=== PATIENT | female | born 1980 | race African-American/Black ===

== ENCOUNTER 2024-11-06 19:07 | Emergency (ER) | payer SELFPAY ==
[2024-11-06 19:40] VITALS: BP 182/94; PULSE 90; RESP 16; TEMP 37; O2SAT 98
--- OUTSIDE RECORDS SUMMARY | 2024-11-06 22:04 | XMS_ITS | Clinical Summary ---
Author Organization [facility] Address [address] [place] [address] Care Team Providers Care Director Of Public Health Name Role Phone Sandra Benitez Unavailable [phone] Rahul Brush MD Unavailable [phone] Jyoti Reyna MD Primary Care Provider + Allergies Active Allergy Reactions Criticality Noted Date Comments Amoxicillin Rash Medium Amoxicillin Hives Medium 03/12/2022 Lisinopril Angioedema High 09/17/2017 Penicillins Hives,Rash,Urticaria High 03/31/2014 hives hives Hives Medications atorvastatin (LIPITOR) 10 mg tablet Take 1 tablet (10 mg total) by mouth every evening 3 Active OneTouch Verio test strips strip USE TO TEST TWICE DAILY AND NEEDED 3 Active gabapentin (NEURONTIN) 300 mg capsule Take 1 capsule (300 mg total) by mouth 3 (three) times a day 3 Active LORazepam (ATIVAN) 1 mg tablet TAKE 1 TABLET EVERY DAY BY ORAL ROUTE NEEDED. 3 Active levETIRAcetam (KEPPRA) 1,000 mg tablet Take 1 tablet (1,000 mg total) by mouth 2 (two) times a day 180 tablet 3 3 Active losartan-hydroCHLOR Othiazide (HYZAAR) 50-12.5 mg per tablet Take 1 tablet by mouth daily Active Januvia 100 mg tablet Take 1 tablet (100 mg total) by mouth daily Active zolpidem (AMBIEN) 10 mg tablet Take 1 tablet (10 mg total) by mouth nightly as needed for sleep 4 Active ondansetron ODT (ZOFRAN-ODT) 4 mg disintegrating tablet Take 1 tablet (4 mg total) by mouth every 8 (eight) hours as needed for nausea 20 tablet 4 Active azithromycin (ZITHROMAX) 250 mg tablet TAKE 2 TABLETS BY MOUTH TODAY, THEN TAKE 1 TABLET DAILY FOR 4 DAYS DIRECTED 4 Active benzonatate (TESSALON) 200 mg capsule TAKE ONE CAPSULE EVERY EIGHT HOURS NEEDED FOR COUGH 5 Active ibuprofen (ADVIL,MOTRIN) 800 mg tablet TAKE 1 TABLET EVERY 8 HOURS BY ORAL ROUTE NEEDED FOR 90 DAYS. 4 Active OneTouch Delica Plus Lancet 33 gauge misc USE TO CHECK BLOOD SUGAR DAILY 4 Active methylPREDNISolone (MEDROL DOSEPACK) 4 mg Dosepack TAKE 6 TABLETS ON DAY 1 DIRECTED ON PACKAGE AND DECREASE BY 1 TAB EACH DAY FOR A TOTAL OF 6 DAYS 5 Active oseltamivir (TAMIFLU) 75 mg capsule TAKE 1 CAPSULE TWICE DAILY FOR 5 DAYS 5 Active Active Problems Problem Noted Date Diagnosed Date Acute appendicitis 08/14/2022 Assessment & Plan (08/14/2022 10:49 PM CDT): - CT w/ Acute appendicitis without evidence of perforation - S/p OR 08/14 for appendectomy Acute appendicitis, unspecified acute appendicit is type 08/14/2022 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 On 08/14 patient was scoped by ENT showing L > R posterior granulomas (likely related to prolonged intubation), vocal folds moving symmetrically on adduction/abduction. The patient received 2 doses of Decadron on 08/13. - Dobhoff removed 08/21. MBS from 08/21 showed no dietary restriction - Is eating more today Aspiration pneumonia 08/16/2017 Assessment & Plan (08/16/2017 3:15 PM CDT): S/p one-week course of vancomycin 1500mg q12, cefepime 2g q8 hrs. Most recent chest xray showed mild to moderate asymmetric pulmonary edema on the right, with sparing of the left lung with no pleural effusion or pneumothorax. - breathing comfortably in RA Altered mental status 08/15/2017 Assessment & Plan (08/22/2017 10:55 AM CDT): Unclear what precipitated the initial presentation; differentials included intoxication versus seizure event. Patient was AO x 1 on admit to the MICU, likely related to post-ICU delirium with component of hypernatremia. Currently appeared much more alert. HIV, RPR, TSH wnl - continue to monitor - Cont Topamax (50mg BID) per Neuro - will need to follow up with Epilepsy outpatient - no indication for brain MRI or EEG at this point as exam was non-focal - S/p IV thiamine for three days; cont PO thiamine -Clinically improved today Assessment & Plan (08/15/2017 8:04 PM CDT): Patient is currently oriented to name only, however she appears to comprehend questions and is able to communicate yes/no answers. Likely multifactorial with components of ICU delirium, psychoactive medications, and hypernatremia. hCT on admission with NAICP -consider d/c baclofen, seroquel -delirium precautions Hypernatremia 08/14/2017 Assessment & Plan (08/16/2017 1:34 PM CDT): Patient has been persistently hypernatremic to high 140s low 150s since admission. She has been receiving D5W and post SBFT placement she also began free water flushes through her tube. After admission to the MICU her net water deficit was 3.4L. D5W was discontinued as the patient was severely hyperglycemic with increases in her free water flushes to compensate. Her Na has been downtrending on day of transfer. - daily BMP Assessment & Plan (08/15/2017 4:07 PM CDT): Na persistently in 150s for past several days. Free water deficit 3.4L. Currently on D5W 40mL/hr, cont free water 25mL/hr, and FWF 60mL q4h (1.92L per 24h). -recheck BMP q8h Assessment & Plan (08/15/2017 7:20 AM CDT): Stable hypernatremia (153 mM), likely a result of significant furosemide. - Discontinue furosemide - Continue FWF 60 mL PT Q6H, discontinue D5W Type 2 diabetes mellitus 08/07/2017 Assessment & Plan (08/14/2022 10:49 PM CDT): - Not on any meds at home - SSI while inpatient Assessment & Plan (08/22/2017 10:53 AM CDT): Latest a1c 7.9 this admission. Patient's metformin was held and she was placed on a MDSSI with several hyperglycemic episodes to 300s on 08/09 prompting initiation of an insulin gtt. On 08/13 post extubation she received 2 doses of decadron 4mg and around this time also began tube feeds. She subsequently became hyperglycemic again to the 300s. She was started on NPH insulin 5u q8h for this and transferred to the MICU for further management, where her insulin regimen was consolidated to NPH 25u->28u q8h and insulin gtt was discontinued. - cont Lantus 30u + 3u TID and MDSS - plan for Diabetic Nurse Educator to speak with patient today Assessment & Plan (08/15/2017 3:50 PM CDT): Chronic type 2 diabetes mellitus on admission, A1c this admission 7.9. Patient takes metformin 1g BID at home. BG in the past 24h between 110 - 180, previously as high as 342 in the context of 4mg dexamethasone given x2 on 08/13. Patient is receiving insulin gtt 6u/hr on admission here (TDD ~144 units) as well as D5W 40mL/hr. She is receiving tube feeds at 50mL/hr through her Dobhoff. -d/c insulin gtt -start insulin NPH 25u q8h with HDSSI -q4h POC blood glucose -reassess insulin regimen after discontinuing D5W and when patient can tolerate PO Assessment & Plan (08/15/2017 7:22 AM CDT): Baseline DM2 on metformin 1000 mg PO BID at home. - NPH 4 units Q8H - transition to HD SSI Q4H when able - continue tube feeds until patient passes swallow eval and is consuming enough calories PO - d/c D5W being administered for hypernatremia Assessment & Plan (08/11/2017 2:24 PM CDT): Baseline DM2, titrated off insulin infusion overnight and transitioned to SSI - NPH 3units Q8H - HD SSI Q4H - plan to advance TF to goal: Pivot 1.5 yfn TF advancing to goal (60 mL/hr), did have episode of nausea with emesis this morning, Will place SBFT - on KUB this am, sbft post pyloric Assessment & Plan (08/10/2017 1:29 PM CDT): Baseline DM2, currently on insulin infusion for glycemic control. - NPH 3units daily; Will likely need increase -transition to HD SSI once glycemic control has improved - Pivot 1.5 yfn TF advancing to goal (60 mL/hr), did have episode of nausea with emesis this morning, Will place SBFT Assessment & Plan (08/10/2017 3:00 AM CDT): Chronic problem/present on admission. BGs remained elevated overnight. - First dose of NPH 3u given at midnight; continued on HDSSI overnight w/ BGs still in 200s - would consider increasing NPH dose, but patient has only received 1 dose so it is reasonable to see how BGs respond w/ addition NPH - Pivot 1.5 yfn TF advancing to goal (60 mL/hr) Assessment & Plan (08/09/2017 3:25 AM CDT): Chronic problem/present on admission. Episodes of hyperglycemia, thought BGs largely controlled on SSI. - Continue HDSSI - Pivot 1.5 yfn TF advancing to goal (60 mL/hr) Assessment & Plan (08/08/2017 3:32 PM CDT): Chronic problem/present on admission - Continue HDSSI - Pivot 1.5 yfn TF advancing to goal (60 mL/hr) Assessment & Plan (08/07/2017 8:05 AM CDT): Chronic problem/present on admission - On mid-dose sliding scale insulin with blood sugar in 200s - Will increase to HDSSI today Assessment & Plan (08/07/2017 1:47 AM CDT): - FSBS QID, mid dose SSI HTN (hypertension) 08/07/2017 Assessment & Plan (08/15/2017 3:55 PM CDT): Chronic HTN on admission on clonidine and lisinopril at home. Patient currently stable at 140-150s/80-90s. -continue metoprolol 12.5mg BID -amlodipine 10mg QD -lisinopril 10mg QD Assessment & Plan (08/15/2017 7:19 AM CDT): Chronic HTN, on clonidine and lisinopril at home. - continue metoprolol 12.5 mg BID & amlodipine 10 mg PT QD - adding home clonidine 0.2 mg PT QD Assessment & Plan (08/14/2017 5:27 AM CDT): Chronic HTN, on clonidine and lisinopril at home. - continue metoprolol 12.5 mg BID & lisinopril 10 mg PT QD - amlodipine 20 mg PT QD - wean nicardipine gtt for SBP < 150 mmHg Assessment & Plan (08/13/2017 6:46 AM CDT): Chronic HTN, on clonidine and lisinopril at home. - continue metoprolol 12.5 mg BID & lisinopril 10 mg PT QD - amlodipine 10 -> 20 mg PT QD - wean nicardipine gtt for SBP < 150 mmHg Assessment & Plan (08/12/2017 8:13 AM CDT): Chronic HTN, on clonidine and lisinopril at home. - metoprolol 12.5 mg BID with hold parameters - lisinopril 5 -> 10 mg PT QD - amlodipine 10 mg PT QD - wean nicardipine gtt for SBP < 150 mmHg Assessment & Plan (08/11/2017 2:18 PM CDT): Chronic HTN, on clonidine and lisinopril at home. Maxed out on nicardipine gtt. - SBG < 150 - start metoprolol 12.5 BID with hold parameters for tachycardia (?reflex from clonidine withdraw?) - start lisinopril 5 mg daily - Norvasc 10mg daily - wean Nicardipine gtt for SBP<150 - currently holding clonidine; consider adding clonidine back if BP remains elevated - lasix 20mgIVP BID - FBG -1L Assessment & Plan (08/10/2017 11:44 AM CDT): Chronic, on clonidine and lisinopril at home, received hydralazine overnight -start Norvasc 5mg daily, may need to increase to 10 mg if BP does not improve -begin Nicardipine gtt if necessary to target SBP<150 - currently holding clonidine; consider adding clonidine back if BP remains elevated Assessment & Plan (08/10/2017 3:03 AM CDT): Chronic, on clonidine and lisinopril at home - currently holding clonidine; consider adding clonidine back if BP remains elevated - labetalol 10mg prn for SBP >160 Assessment & Plan (08/09/2017 3:12 AM CDT): Chronic, on clonidine at home - Holding clonidine - Off pressors Assessment & Plan (08/08/2017 3:32 PM CDT): Chronic, on clonidine at home - Holding clonidine - Off pressors Assessment & Plan (08/07/2017 8:04 AM CDT): Chronic, on clonidine at home - Holding clonidine - Currently requiring low dose norephinephrine Assessment & Plan (08/07/2017 1:48 AM CDT): - Holding home clonidine while critically ill Depression 08/07/2017 Insomnia 08/07/2017 Breast lump 04/19/2016 06/19/2022 Overview (06/19/2022): tissue density of the left upper outer quadrant with a very small focal area that is more firm at the 1 to 2 o'clock position approximately 4 cm outside the areola Resolved Problems Problem Noted Date Diagnosed Date Resolved Date Epistaxis 08/11/2017 08/15/2017 Overview (08/11/2017): Epistaxis overnight on 08/10, manual pressure held for approximately 10 minutes and gauze packing applied to bilateral nares. Epistaxis occurred after SBFT manipulation yesterday. Assessment & Plan (08/14/2017 5:27 AM CDT): Suspect 2/2 difficult SBFT insertion and coagulopathy. S/p ENT packing (now removed) - oxymetazoline nasal spray PRN - ENT following peripherally, will contact as needed - nasal floseal still in place, but all packing now removed. Assessment & Plan (08/13/2017 6:57 AM CDT): Suspect 2/2 difficult SBFT insertion and coagulopathy. After repacking by ENT last night no nasal packing appears c/d and bedside RN states no longer aspirating blood per ETT. - can start SQH ppx - oxymetazoline nasal spray PRN - remove oral packing - ENT following peripherally, will contact as needed - when current antibiotic regimen completes today will start Unasyn ppx for nasal packing Assessment & Plan (08/12/2017 9:09 AM CDT): Suspect 2/2 difficult SBFT insertion and coagulopathy. - Continue to hold heparin gtt - oxymetazoline nasal spray PRN - ENT following, packed nasopharynx. Appreciate recommendations - when current antibiotic regimen completes tomorrow will start Unasyn ppx for nasal packing Assessment & Plan (08/11/2017 2:31 PM CDT): Suspect 2/2 difficult SBFT insertion with bridle placement on 08/10. On heparin gtt 750u/h for ecmo circuit, PTT 46.5 and PLT 99 (likely consumptive process with ecmo circuit). no other active signs of bleeding. - consult ENT for evaluation and recommendations - send INR now to rule out coagulopathy - ok to continue heparin gtt for now - afrin nasal spray prn - no indication for blood transfusions at this time, consider if Hgb < 8 ARDS (adult respiratory distress syndrome) 08/07/2017 08/07/2017 Assessment & Plan (08/07/2017 1:46 AM CDT): - VV ECMO cannulation via right IJ and femoral veins - lung protective ventilation Acute respiratory failure with hypoxia 08/07/2017 08/15/2017 Overview (08/11/2017): 08/06: cannulated with VV ecmo Chest CT on 08/10 with findings of Extensive ground glass opacification and airspace consolidation, right greater than left, compatible with pulmonary edema in the setting of ECMO with the more consolidative components representing a combination of pulmonary edema and atelectasis, with or without superimposed pneumonia. Particularly, the areas of consolidation in the left lung may represent pneumonia from aspiration. Assessment & Plan (08/15/2017 7:19 AM CDT): Acute hypoxemic respiratory failure likely 2/2 aspiration pneumonitis/pneumonia. CXR demonstrates mild improvement over the last 24 hours. ABG reassuring. Patient extubated, on nasal cannula. Noted to have stridor vs. Transmitted rales. - Racemic epinephrine nebulizer for respiratory distress - s/p 1 dose of decadron. - completed course of vanc/cefe for aspiration pneumonitis. Assessment & Plan (08/14/2017 5:26 AM CDT): Acute hypoxemic respiratory failure likely 2/2 aspiration pneumonitis/pneumonia. CXR demonstrates mild improvement over the last 24 hours. ABG reassuring. Patient extubated, on nasal cannula. Noted to have stridor vs. Transmitted rales. - Racemic epinephrine nebulizer for respiratory distress - s/p 1 dose of decadron. - completed course of vanc/cefe for aspiration pneumonitis. Assessment & Plan (08/13/2017 6:45 AM CDT): Acute hypoxemic respiratory failure likely 2/2 aspiration pneumonitis/pneumonia. CXR demonstrates mild improvement over the last 24 hours. ABG reassuring, ventilator AC/VC+ 18/400/40%/7.5. Patient likely to be deconditioned to the point of not being able to sustain enough spontaneous ventilation. - wean sedation, PSV trial - f/u with thoracic surgery consult from yesterday for likely tracheostomy - continue vancomycin, cefepime for 7 day course, to be completed today Assessment & Plan (08/12/2017 9:08 AM CDT): Acute hypoxemic respiratory failure likely 2/2 aspiration pneumonitis/pneumonia. CXR demonstrates mild improvement over the last 24 hours. ABG reassuring 7.46/37/164 on minimal VV ECMO flow (3200 RPM, flow ~3.5 LPM, FdO2 21% and sweep 2), Ventilator AC/VC+ 18/400/40%/7.5. - Discuss ECMO flow wean with CT surgery given patient's current anticoagulated state - Thoracic surgery consult today for likely tracheostomy - Continue vancomycin, cefepime for 7 day course, to be completed on [id number] - furosemide 20 -> 40 mg IVP BID for FBG -1L today - blood cultures from outside hospital showed no growth to date at last check - will follow up today for final read Assessment & Plan (08/11/2017 2:19 PM CDT): Acute hypoxemic respiratory failure likely 2/2 aspiration pneumonitis/pneumonia. CXR worsening opacification of R lung however still with R>L opacities and moderate pulmonary edema. Sedated on propofol. Chest CT 08/09 with findings of ground glass and airspace opacities R>L, likely pulm edema, possible pnemonia. VV ecmo set to 3200 rpms, flows ~3.48, fdo2 80% and sweep 2. -Thoracic surgery consult on Saturday for likely tracheostomy. - Continue vancomycin, cefepime for 7 day course, to be completed on 08/13 - hold off on PSV trial with VV ecmo in place - V-V ECMO, RPMs decreased to 3200, FdO2 80%, will continue to wean daily as tolerated - decrease FdO2 as tolerated today for PaO2 > 80 - Lasix 20mg IVP BID for FBG -1L - Blood cultures from outside hospital showed no growth to date - follow up Friday 08/11 for final read. - Midazolam gtt for sedation. - Fentanyl 50 mcg PRN for analgesia - Seroquel to 50 mg BID - HSV negative. Assessment & Plan (08/10/2017 1:40 PM CDT): Acute hypoxemic respiratory failure likely 2/2 aspiration pneumonitis/pneumonia. CXR continues to show some improvement to R lung however still with R>L opacities. Sedated on propofol. Chest CT 08/09 with findings of ground glass and airspace opacities R>L, likely pulm edema, possible pnemonia -Thoracic surgery consult on Saturday for likely tracheostomy. - Continue vancomycin, cefepime for 7 day course, to be completed on 08/13 - Lung protective ventilator settings, PSV trial once mental status has improved - V-V ECMO, RPMs decreased to 3600, FdO2 80%, will continue to wean daily as tolerated - Lasix 40 today and aim for net neg 1L FBG - Blood cultures from outside hospital showed no growth to date - follow up Friday 08/11 for final read. - Titrate propofol to off, haldol 2mg if pt becomes agitated. -Fentanyl 50 mcg PRN for analgesia - increase seroquel to 50 mg BID - f/u HSV studies Assessment & Plan (08/10/2017 3:05 AM CDT): Acute hypoxemic respiratory failure likely 2/2 aspiration pneumonitis/pneumonia. CXR continues to show diffuse whiteout in R lung and mild atelectasis at L base. Bronchoscopy performed upon admission w/ significant thin secretions throughout R lung. - trach aspirate, blood, and urine NGTD - Continue vancomycin, cefepime for 7 day course - Lung protective ventilator settings, currently AC/VC 400/12/10/30%. PSV trial when sedation weaned. - V-V ECMO w/ flows around 5LPM and 4000RPM, 100%FdO2 4000 - Net negative fluid balance goal. - Blood cultures from outside hospital showed no growth to date - follow up Friday 08/11 for final read. - Wean sedation with goal of extubation, currently on propofol gtt and pt becoming agitated w/ previous weans - seroquel 25mg BID added yesterday for agitation; would consider increasing dose to 50 BID as patient intermittently agitated on propofol 50 overnight - Consider repeat bronch/BAL as secretions are thick and burden is increasing - f/u HSV studies Assessment & Plan (08/09/2017 3:25 AM CDT): Acute hypoxemic respiratory failure likely 2/2 aspiration pneumonitis/pneumonia. CXR continues to show diffuse whiteout in R lung and mild atelectasis at L base. Bronchoscopy performed upon admission w/ significant thin secretions throughout R lung. - trach aspirate, blood, and urine NGTD - Continue vancomycin, cefepime for 7 day course - Lung protective ventilator settings, currently AC/VC 400/12/10/30%. PSV trial when sedation weaned. - V-V ECMO w/ flows around 5LPM and 4000RPM, 100%FdO2 4000 - Net negative fluid balance goal. - Blood cultures from outside hospital showed no growth to date - follow up Friday 08/11 for final read. - Tracheostomy consult if patient is unable to be extubated. - Wean sedation with goal of extubation, currently on propofol gtt, wean to 1/2 q8 hours for extubation evaluation; pt has become agitated x2 with previous weans (dex and propofol weans) Assessment & Plan (08/08/2017 3:31 PM CDT): - White out on R lung - Bronchoscopy with cultures show normal esperanza - Continue vancomycin, cefepime for 7 days - Lung protective ventilator settings, currently AC/VC 400/12/10/45%. PSV trial when able. - Wean sedation with goal of extubation, currently on propofol gtt, wean to 1/2 q8 hours for extubation evaluation - follow up tracheal aspirate, blood, urine cultures - currently NGTD - V-V ECMO for respiratory failure and hypoxia - 4000 RPM/5.15LPM/2sweep/100%FdO2 - Net negative fluid balance goal. - Blood cultures from outside hospital showed no growth to date - follow up Friday 08/11 for final read. - Tracheostomy consult if patient is unable to be extubated. Assessment & Plan (08/07/2017 12:18 PM CDT): - White out on R lung - Bronch/BAL with cultures - Continue vancomycin, cefepime - Lung protective ventilator settings, currently AC/VC 400/12/10/45%. PSV trial today. - Wean sedation with goal of extubation, currently on morphine/propofol gtt - follow up tracheal aspirate, blood, urine cultures - currently NGTD - V-V ECMO for respiratory failure and hypoxia - 4000 RPM/5.15LPM/2sweep/100%FdO2 - Net negative fluid balance goal. - Follow up blood cultures from [facility]. Assessment & Plan (08/07/2017 2:03 AM CDT): - VV ECMO cannulation via right IJ and femoral veins - lung protective ventilation - Blood cultures x2 drawn, UA sent - empiric antibiotic therapy with vancomycin and cefepime Toxic metabolic encephalopathy 08/07/2017 08/15/2017 Overview (08/10/2017): Unknown event leading to aspiration. 08/09: Head CT with no acute intracranial abnormalities 08/09: EEG done with findings of severe generalized slowing with burst suppression pattern Assessment & Plan (08/14/2017 5:30 AM CDT): EEG with sereve generalized slowing with burst suppression ([id number]). Likely preceded aspiration event. Etiology unclear at this point, DDx includes medication overdose (zolpidem; family denies she took any the day of her event) vs acute intoxication vs seizure. Concern that patient hit head during event (negative head CT [id number]). - TG elevated at 345 mg/dL, d/c propofol - Continue quetiapine 50 mg TID - Oxycodone 5 mg PT Q4H PRN - Fentanyl boluses prn for agitation. - Precedex, wean as tolerated Assessment & Plan (08/13/2017 6:55 AM CDT): EEG with sereve generalized slowing with burst suppression ([id number]). Likely preceded aspiration event. Etiology unclear at this point, DDx includes medication overdose (zolpidem; family denies she took any the day of her event) vs acute intoxication vs seizure. Concern that patient hit head during event (negative head CT [id number]). Several attempts to wean sedation have been unsuccessful as patient becomes agitated. - TG elevated at 345 mg/dL, d/c propofol - Continue midazolam 2 mg/hr & fentanyl 25 mcg/hr - Continue quetiapine 50 mg TID - Adding oxycodone 5 mg PT Q4H PRN as patient appears to respond well to fentanyl pushes from [facility] - Will add dexmedetomidine if patient becomes agitated after the above changes Assessment & Plan (08/12/2017 9:05 AM CDT): EEG with sereve generalized slowing with burst suppression ([id number]). Likely preceded aspiration event. Etiology unclear at this point, DDx includes medication overdose (zolpidem; family denies she took any the day of her event) vs acute intoxication vs seizure. Concern that patient hit head during event (negative head CT [id number]). Several attempts to wean sedation have been unsuccessful as patient becomes agitated. - Reduce propofol 35 -> 25 mcg/kg/min, triglyceride level with AM labs today - Increase midazolam 1 -> 2 mg/hr to compensate for propofol reduction - Decrease fentanyl 50 -> 25 mcg/hr as patient's pupils are pinpoint - Continue quetiapine 50 mg BID Assessment & Plan (08/11/2017 2:22 PM CDT): Likely preceded aspiration event. Etiology unclear at this point, DDx includes medication overdose (zolpidem) vs acute intoxication vs seizure. Concern that patient hit head during event. Several attempts to wean sedation have been unsuccessful as pt becomes agitated. - Unable to process images from outside hospital - read as no acute intracranial abnormality per OSH - low dose midazolam, PRN Fentanyl - low dose propofol infusion for sedation, do not exceed 20mcg/kg/min - Seroqel to 50mg BID Assessment & Plan (08/10/2017 1:43 PM CDT): Likely preceded aspiration event. Etiology unclear at this point, DDx includes medication overdose (zolpidem) vs acute intoxication vs seizure. Concern that patient hit head during event. Several attempts to wean sedation have been unsuccessful as pt becomes agitated. HCT yesterday with findings of no acute intracranial abnormality. EEG done with findings of severe generalized slowing with burst suppression pattern - Unable to process images from outside hospital - read as no acute intracranial abnormality per OSH - Will hold off on anticoagulation while ECMO flows are adequate in case of head trauma - decrease propofol, Add PRN Fentanyl, attempt to wake - increase Seroqel to 50mg BID Assessment & Plan (08/10/2017 3:02 AM CDT): Likely preceded aspiration event. Etiology unclear at this point, DDx includes medication overdose (zolpidem) vs acute intoxication vs seizure. Concern that patient hit head during event. Several attempts to wean sedation have been unsuccessful as pt becomes agitated. - Unable to process images from outside hospital - read as no acute intracranial abnormality per OSH - pt not stable enough for transport to CT - OSH UDS negative, per family has had a mini seizure in 2014, unclear if patient had seizure like activity during this event. Consider AED. - Will hold off on anticoagulation while ECMO flows are adequate in case of head trauma - Patient extremely agitated on Precedex drip, switched to propofol gtt - seroquel added 08/08; would consider increasing dose for persistent agitation as above Assessment & Plan (08/09/2017 3:21 AM CDT): Likely preceded aspiration event. Etiology unclear at this point, DDx includes medication overdose (zolpidem) vs acute intoxication vs seizure. Concern that patient hit head during event. - Unable to process images from outside hospital - read as no acute intracranial abnormality per OSH - pt not stable enough for transport to [place] - OSH UDS negative, per family has had a mini seizure in 2014, unclear if patient had seizure like activity during this event. Consider AED. - Will hold off on anticoagulation while ECMO flows are adequate in case of head trauma. - Patient extremely agitated on Precedex drip, switched to propofol gtt with no additional sedating medications - Plan to wean every 8 hours to evaluate for poss extubation Assessment & Plan (08/08/2017 3:33 PM CDT): Leading to aspiration. Unclear etiology, differential diagnosis includes zolpidem overdose vs intoxication, seizure. Concern that patient hit head during event. - Unable to process disc from outside hospital - read as no acute intracranial abnormality. - Currently, portable head CT unavailable. - OSH UDS negative, per family has had a mini seizure in 2014, unclear if patient had seizure like activity during this event. Consider AED. - Will hold off on anticoagulation while ECMO flows are adequate in case of head trauma. - CT head when able. - Patient extremely agitated on Precedex drip, will switch to propofol drip with no additional sedating medications. Will wean to 1/2 dose every 8 hours to evaluate for extubation. Assessment & Plan (08/07/2017 12:17 PM CDT): Leading to aspiration. Unclear etiology, differential diagnosis includes zolpidem overdose vs intoxication, seizure. - Follow up CT head overread from outside hospital - patient potentially hit head during event - Wean sedation for neurologic exam - Consider AED (patient has chart history of mini seizures) Surgical History Surgery Date Site/Laterality Comments LAPAROSCOPIC CHOLECYSTECTOMY Medical History Medical History Date Comments Hypertension Diabetes mellitus (HCC) Depression Insomnia Family History Medical History Relation Name Comments Breast cancer Neg Hx Colon cancer Neg Hx Ovarian cancer Neg Hx Uterine cancer Neg Hx Social History Tobacco Use Types Packs/Day Years Used Date Smoking Tobacco: Never Smokeless Tobacco: Never Tobacco Cessation:Counseling Given: Not Answered Alcohol Use Standard Drinks/Week Comments Not Currently 0 (1 standard drink = 0.6 oz pur e alcohol) Personal Safety Answer Date Recorded Have you ever been in or are you currently in a harmful physical or emotional relationship or is someone making you feel afraid or unsafe? Denies 10/22/2023 Comments No Sex and Gender Information Value Date Recorded Sex Assigned at Not on file Legal Sex Female 8:59 PM LEAD ANDROID DEVELOPER Gender Identity Not on file Sexual Orientation Not on file Obstetrics History Comments Menarche:13 Last Filed Vital Signs Vital Sign Reading Time Taken Comments Blood Pressure 129/96 10/22/2023 4:13 PM CDT Pulse 59 10/22/2023 4:13 PM CDT Temperature 36.7 C (98 F) 10/22/2023 1:38 PM CDT Respiratory Rate 16 10/22/2023 4:13 PM CDT Oxygen Saturation 99% 10/22/2023 4:13 PM CDT Inhaled Oxygen Concentration - - Weight 91.6 kg (202 lb) 04/14/2024 9:21 AM LEAD ANDROID DEVELOPER Height 165.1 cm (5' 5) 04/14/2024 9:21 AM LEAD ANDROID DEVELOPER Body Mass Index 33.61 04/14/2024 9:21 AM LEAD ANDROID DEVELOPER Plan of Treatment Health Maintenance Due Date Last Done Comments Albumin Creatinine Ratio, Urine 1980 Depression Screening 1980 Dilated Eye Exam 1980 Foot Exam 1980 DTaP/Tdap/Td Vaccine (1 - Tdap) 12/16/1991 Varicella Vaccines (1 of 2 - 13+ 2-dose series) 1993 Hepatitis B Screening 1998 Pneumococcal vaccine <65 (1 of 2 - PCV) 12/16/1999 HPV Vaccines (1 - 3-dose SCD M series) 12/16/2007 Breast Cancer Screening-Mammogram 04/25/2017 017 Hemoglobin A1C 02/05/2018 08/06/2017, 06/28/2015 Lipid Panel 08/06/2018 08/06/2017, 0504/2015, 08/08/2014, Additional history exists eGFR 10/21/2024 10/22/2023, 03/28, 03/14/2023, Additional history exists Influenza Vaccine (#1) 2024 Cervical Cancer Screening 04/14/20252024, 04/14/2024, 06/25/2013 Regular Well Visit/Exam 18-64 04/14/2025 04/14/2024 Hepatitis C Screening Completed 04/14/2024 Procedures Procedure Name Priority Date/Time Associated Diagnosis Comments HEPATITIS C ANTIBODY Routine 04/14/2024 10:33 AM LEAD ANDROID DEVELOPER Screening examination for STD (sexually transmitted disease) HIGH RISK HPV DNA DETECTION WITH GENOTYPING Routine 04/14/2024 10:13 AM LEAD ANDROID DEVELOPER EGFR STAT 10/22/2023 2:00 PM CDT HEMOGLOBIN A1C Timed 08/06/2017 11:27 PM CDT LIPID PANEL Timed 08/06/2017 11:27 PM CDT DIAGNOSTIC MAMMOGRAM BILATERAL W FARRUKH Routine 04/25/2016 2:15 PM LEAD ANDROID DEVELOPER from Last 3 Months or Most Recently Relevant to Health Maintenance Results * Hepatitis C antibody Blood (04/14/2024 10:33 AM LEAD ANDROID DEVELOPER) Hep C Ab Nonreactive Nonreactive Comment: Antibodies to HCV not detected. Does NOT exclude the possibility of recent exposure to HCV. Current interpretive data was last revised on 21 Interpretive Data Nonreactive: Antibodies to HCV not detected. Does NOT exclude the possibility of recent exposure to HCV. Equivocal: Equivocal for HCV antibodies. Supplemental molecular testing will be automatically performed to determine infection status in accordance with current CDC screening recommendations. Reactive: Positive for HCV antibodies. This may represent current or past HCV infection. Supplemental molecular testing will be automatically performed to determine current infection status in accordance with current CDC screening recommendations. Interpretive data was last revised on 2019. Blood 04/14/2024 10:3 3 AM LEAD ANDROID DEVELOPER 04/14/2024 10:40 AM LEAD ANDROID DEVELOPER us Olena Carlton CNM LAB MICROBIOLOGY - GENERAL ORDERABLES Final Result [facility] [address] [facility] [place] [address] * High Risk HPV DNA Detection with Genotyping (Molecular component) (04/14/2024 10:13 AM LEAD ANDROID DEVELOPER) HPV HR 16 Not Detected Not Detected [facility] Comment:Testing performed by : [facility], [address] [place]., [address] HPV HR 18 Not Detected Not Detected OLLIE CASTILLO Comment:Testing performed by : [facility], [address] [place]., [address] HPV HR Non 16/18 Not Detected Not Detected OLLIE CASTILLO Comment: Interpretive Data Nucleic acid amplification for detection of high-risk Human Papilloma virus (HPV) is performed by the Bubba Karuna 6800 HPV test. This assay specifically detects HPV-16 and HPV-18 genotypes. The following HPV genotypes are detected as high-risk HPV: HPV-31, 33, 35, ,39, 45, 51, 52, 56, 58, 59, 66, and 68. This assay has been approved by the [place] Food and Drug Administration for detection of HPV in cervical specimens collected by a physician using an endocervical brush/spatula or cervical broom and placed in the ThinPrep Pap Test PreservCyt collection containers. The performance characteristics of this test have been verified by the [facility] Molecular Infectious Disease laboratory. Correlate with separately reported cytology results, as applicable. Interpretive data last revised 22 Testing performed by: [facility], [address] [place]., [address] Endocervical 04/14/2024 10:1 3 AM LEAD ANDROID DEVELOPER 04/15/2024 10:40 AM LEAD ANDROID DEVELOPER Olena Carlton CNM LAB BODY FLUIDS AND STOOLS ORDERABLES Final Result [facility]IE [address] [facility] Department [place] [address] [facility] * eGFR (10/22/2023 2:00 PM CDT) eGFR 72 >=60 mL/min/1. 73 m2 Comment: Interpretive Data Reference Interval Normal >/= 90 mL/min/1.73m2 Mildly decreased* 60 - 89 mL/min/1.73m2 Mildly to moderately decreased 45 - 59 mL/min/1.73m2 Moderately to severely decreased 30 - 44 mL/min/1.73m2 Severely decreased 15 - 29 mL/min/1.73m2 Kidney Failure < 15 mL/min/1.73m2 *Relative to young adult level Estimated glomerular filtration rate is determined by the 2020 CKD-EPI equation recommended by the National Kidney Foundation (A Unifying Approach to GFR Estimation: Recommendations of the NKF-ASK Task Force on Reassessing the Inclusion of Race in Diagnosing Kidney Disease, JASN 202). The CKD-EPI equation should not be used for patients with unstable renal function and has not been validated in children and those over 70. Current interpretive data was last reviewed 2020. Blood 10/22/2023 2:00 PM CDT 10/22/2023 2:03 PM CDT Wero Suggs MD LAB BLOOD ORDERABLES Fi nal Result Performing Organization Address [facility] Co de Phone Number [facility] [address] [facility] Department [place] [address] * (ABNORMAL) Hemoglobin A1c (08/06/2017 11:27 PM CDT) Hgb A1C 7.9(H) 4.0 - 5.6 % [facility] Estimated Average Glucose 180 mg/dL [facility] Comment: The ADA recommends reporting an estimated Average Glucose (eAG) with all Hemoglobin A1c results using the equation derived from a study of 507 normal and diabetic adults. Minority populations were underrepresented and children were not included. (Diabetes Care 31:3965-2778, 2008). The eAG is not equivalent to a fasting glucose. Blood specimen (specimen) 08/06/2017 11:27 PM CDT 08/06/2017 11:48 PM CDT Narrative [facility] - 08/07/2017 9:40 PM CDT Connie Iniguez MD LAB BLOOD ORDERABLES Fi nal Result Performing Organization Address City/[facility]/ZIP Co de Phone Number [facility] [address] [facility] Department [place] [address] * (ABNORMAL) Lipid panel (08/06/2017 11:27 PM CDT) Cholesterol 98 30 - 200 mg/dL [facility] Comment: Interpretive Data Desirable: <200 mg/dL Borderline high: 200-239 mg/dL High: > or = 240 mg/dL Literature Reference: National Cholesterol Education Program (NCEP) Expert Panel on Detection, Evaluation, and Treatment of High Blood Cholesterol in Adults (Adult Treatment Panel III). Circulation 2004; 110:227. Current interpretive data was last revised on 2014. Triglycerides 166(H) 0 - 150 mg/dL O[facility] Comment: Interpretive Data Desirable: < 150 mg/dL Borderline High: 150 - 199 mg/dL High: 200 - 499 mg/dL Very High: > or = 499 mg/dL Literature Reference: See Cholesterol Current interpretive data was last revised on 2014. HDL 56 >=40 mg/dL [facility] Comment: Interpretive Data Less than 40 mg/dL - low; A major risk factor for heart disease. Greater than or equal to 60 mg/dL - High; considered protective of heart disease. Literature Reference: See Cholesterol Current interpretive data was last revised on 2014. LDL, calculated 9(L) 10 - 129 mg/dL [facility] Comment: Interpretive Data Optimal: < 100 mg/dL Near Optimal: 100 - 129 mg/dL Borderline High: 130 - 159 mg/dL High: 160 - 189 mg/dL Very high: > or = 190 mg/dL Literature Reference: See Cholesterol Current interpretive data was last revised on 2014. Non-HDL Cholesterol 42 mg/dL [facility] Comment: Interpretive Data When triglycerides are >200 mg/dL, non-HDL C is a secondary target of therapy, with a goal 30 mg/dL higher than the identified LDL-C goal. Reference: See Cholesterol Reference. Current interpretive data was last revised 2014. Blood specimen (specimen) 08/06/2017 11:27 PM CDT 08/06/2017 11:44 PM CDT Narrative O[facility]IE ALLEN - 08/07/2017 9:45 PM CDT Connie Iniguez MD LAB BLOOD ORDERABLES Fi nal Result O[facility] Department [place] [address] * Diagnostic Mammogram Bilateral W Farrukh (04/25/2016 2:15 PM LEAD ANDROID DEVELOPER) Anatomical Region Laterality Modality Breast Bilateral Mammography 04/25/2016 2:15 PM LEAD ANDROID DEVELOPER Impressions 04/25/2016 3:56 PM LEAD ANDROID DEVELOPER OVERALL STUDY BIRADS: 2 BENIGN No evidence of malignancy in either breast. Small benign complicated cyst at the site of palpable concern in the left breast, which is probably incidental and does not correspond in size with the palpable lump of original concern. The original lump of concern is most likely due to asymmetric fibroglandular tissue. This was discussed with Ms. Peña. A 5 year screening mammogram is recommended. Dr. Reinaldo Pacheco M.D. nh/:04/25/2016 15:55:29 Dope House Operator Helper: Ceci Atwood RT (R)(M), [facility] letter sent: Normal Exam Abnormal History Reading location: OVERALL STUDY BIRADS: 2 Benign [EOD] Narrative 04/25/2016 3:56 PM LEAD ANDROID DEVELOPER - MG - US BILATERAL DIGITAL DIAGNOSTIC MAMMOGRAM 3D/2D AND TARGETED LEFT ULTRASOUND WITH MEDIOLATERAL OBLIQUE CRANIOCAUDAL: 04/25/2016 The study was acquired using full field digital technology and interpreted from soft copy. 2D digital mammographic views, as well as 3D digital tomosynthesis were performed in the CC and MLO projections. CLINICAL: 35-year-old woman presents for evaluation of a palpable marble-sized lump in the left breast, and screening mammography of the right breast. COMPARISONS: Comparison is made to exams dated: 04/13/2008 mammogram and ultrasound - [facility] and 09/15/2009 mammogram - [facility]. BREAST TISSUE: The tissue of both breasts is heterogeneously dense, which may obscure small masses. MAMMOGRAPHIC FINDINGS: A radiopaque BB was placed over the site of palpable concern in the superior left breast. There is no mammographic abnormality at this site. Targeted ultrasound will be performed. There has been no suspicious change. There is no dominant mass, suspicious calcification or architectural distortion in either breast. ULTRASOUND FINDINGS: Targeted left breast ultrasound at the site of palpable concern at 12 o'clock 4 cm from the nipple demonstrated a circumscribed anechoic cyst with a thin internal septation measuring 6 x 5 x 4 mm. No suspicious abnormality was identified. Procedure Note Provider, MD Donald - 07/12/2020 - MG - US BILATERAL DIGITAL DIAGNOSTIC MAMMOGRAM 3D/2D AND TARGETED LEFT ULTRASOUNDWITH MEDIOLATERAL OBLIQUE CRANIOCAUDAL: 04/25/2016 The study was acquired using full field digital technology and interpretedfrom soft copy. 2D digital mammographic views, as well as 3D digital tomosynthesis were performed in the CC and MLO projections. CLINICAL: 35-year-old woman presents for evaluation of a palpablemarble-sized lump in the left breast, and screening mammography of the right breast. COMPARISONS: Comparison is made to exams dated: 04/13/2008 mammogram and ultrasound - [facility] and 09/15/2009 mammogram - [facility]. BREAST TISSUE: The tissue of both breasts is heterogeneously dense, whichmay obscure small masses. MAMMOGRAPHIC FINDINGS: A radiopaque BB was placed over the site ofpalpable concern in the superior left breast. There is no mammographic abnormalityat this site. Targeted ultrasound will be performed. There has been no suspicious change. There is no dominant mass,suspicious calcification or architectural distortion in either breast. ULTRASOUND FINDINGS: Targeted left breast ultrasound at the site ofpalpable concern at 12 o'clock 4 cm from the nipple demonstrated a circumscribed anechoic cyst with a thin internal septation measuring 6 x 5 x 4 mm. No suspicious abnormality was identified. IMPRESSION: OVERALL STUDY BIRADS: 2 BENIGN No evidence of malignancy in either breast. Small benign complicated cyst at the site of palpable concern in the left breast, which is probably incidental and does not correspond in size withthe palpable lump of original concern. The original lump of concern is mostlikely due to asymmetric fibroglandular tissue. This was discussed with . A 5 year screening mammogram is recommended. Dr. Reinaldo Pacheco M.D. nh/:04/25/2016 15:55:29 Dope House Operator Helper: Ceci BRAN (R)(M), [facility] letter sent: Normal Exam Abnormal History Reading location: OVERALL STUDY BIRADS: 2 Benign [EOD] Elan Lua MD IMG MAMMO PROCEDURES Final Result from Last 3 Months or Most Recently Relevant to Health Maintenance Insurance [facility] [place] [address] [facility] ANTH ACCESS CHOICE Advance Directives For more information, please contact: [phone] * Full Code (Latest Code Status on File) Date Activated Date Inactivated Comments 08/06/2017 11:42 PM 08/22/2017 6:03 PM Care Teams Director Of Public Health Relationship Specialty Start Date End Date Jyoti Reyna MD [address] [place] [address] DR WRIGHT [address] [place] [id number] PCP - General Family Medicine 04/06/23 Sandra Benitez PA Family Medicine 03/12/22 Gonsalo, Rahul Rivero MD [id number] [place] [address] Consulting Physician General Surgery 08/14/22
--- NOTE | 2024-11-06 22:08 | ED_ITS ---
HPI - Dental/Oral General Chief complaint: Dental/Oral Stated complaint: tooth pain, face now swelling Time Seen by Provider: 11/06/24 21:42 Source: patient Mode of arrival: ambulatory Limitations: no limitations History of Present Illness HPI Narrative: Patient presents to the emergency department for toothache. Reports associated facial swelling. Denies fevers. MD Complaint: tooth pain Location: Tooth # (5) Related Data Home Medications ?Medication ?Instructions ?Recorded ?Confirmed ?Last Taken ?Type atorvastatin 10 mg tablet mg 11/06/24 Unknown History duloxetine 60 mg capsule,delayed mg PO 11/06/24 Unkno wn History release lancets 33 gauge (OneTouch Delica 11/06/24 11/06/24 U nknown History Plus Lancet) losartan 50 mg-hydrochlorothiazide tablet 11/06/24 Un known History 12.5 mg tablet potassium chloride 20 mEq meq PO 11/06/24 Unknown His tory tablet,extended release zolpidem 10 mg tablet mg 11/06/24 Unknown History Allergies Allergy/AdvReac Type Severity Reaction Status Date / Time amoxicillin Allergy Mild Unknown Verified 11/06/24 19:43 Penicillins Allergy Mild Unknown Verified 11/06/24 19:43 Review of Systems Review of Systems: All systems reviewed & are unremarkable except as noted in HPI and below PMFSH Past Medical History Medical History (Updated 11/06/24 @ 22:11 by Erica Etienne PA-C) Hypertension Exam Narrative: GENERAL: Well-appearing, well-nourished, and in no acute distress. HEAD: Normocephalic, atraumatic. EYES: EOMI. ENT: Nares clear, no rhinorrhea or epistaxis. Mucous membranes moist. Oropharynx without tonsillar hypertrophy exudate or other lesions. Tooth #5 tender to palpation without surrounding edema or fluctuance to suggest abscess. Mild right sided facial swelling without overlying erythema NECK: Supple. No adenopathy or masses. CHEST: No respiratory distress. HEART: Regular rate EXTREMITIES: Normal range of motion. No edema. SKIN: Warm, dry, no rash. NEURO: No focal deficits. Alert and oriented x3. PSYCH: Normal mood and affect Course Vital Signs Vital signs: Vital Signs Temperature 98.6 F 11/06/24 19:40 Pulse Rate 90 11/06/24 19:40 Respiratory Rate 16 11/06/24 19:40 Blood Pressure 182/94 H 11/06/24 19:40 Pulse Oximetry 98 11/06/24 19:40 Oxygen Delivery Room Air 11/06/24 19:40 Temperature 98.6 F 11/06/24 19:40 Pulse Rate 90 11/06/24 19:40 Respiratory Rate 16 11/06/24 19:40 Blood Pressure 182/94 H 11/06/24 19:40 Pulse Oximetry 98 11/06/24 19:40 Oxygen Delivery Room Air 11/06/24 19:40 MDM - Dental/Oral MDM Narrative Medical decision making narrative: Patient presents the emergency department for a toothache. Mild associated facial swelling. No evidence for abscess on exam. She is afebrile and nontoxic appearing. Incidentally hypertensive. Does have a known history of hypertension. No symptoms with this. Patient will be started on oral antibiotics and instructed on the importance of following up with a dentist. She was given warnings to return to the ER Differential Diagnosis Differential diagnosis: Likely dental caries, toothache, dental abscess and fracture of tooth Critical Care Time Critical Care Time Critical Care Time: No Discharge Plan Discharge Clinical Impression: Toothache Patient Disposition: Home Condition: Stable Instructions: Antibiotic Form, Toothache (ED) Additional Instructions: Return to the Emergency Department if you experience fever >101, increasing swelling and redness of your tooth, or any other symptoms that are concerning to you Take antibiotic as prescribed. Tylenol or Ibuprofen as needed for pain. You can apply a dab of clove oil to a Follow up with your dentist Patient Language: Ukrainian Prescriptions: New clindamycin HCl [Cleocin HCl] 300 mg capsule 300 mg PO Q8H 7 Days Qty: 21 0RF No Action atorvastatin 10 mg tablet zolpidem 10 mg tablet losartan-hydrochlorothiazide 50-12.5 mg tablet duloxetine 60 mg capsule,delayed release(DR/EC) PO (DME) lancets [OneTouch Delica Plus Lancet] 33 gauge misc MISCELLANEOUS potassium chloride 20 mEq tablet extended release PO Follow-up/Referrals: Macario,Keyshawn Cabrera MD [Primary Care Provider]
[2024-11-06] MEDS: KETOROLAC 30 MG/ML VIAL (*BKC) IM (22:24)
[2024-11-06] MEDS: ACETAMINOPHEN 500 MG TABLET 1000 MG PO (22:24)
[2024-11-06] MEDS: CLINDAMYCIN HCL 150 MG CAP 300 MG PO (22:24)
[2024-11-06 22:33] VITALS: BP 145/74; PULSE 80; RESP 20; TEMP 37.1; O2SAT 99
== END 2024-11-06 22:34 | disposition home or self-care (01) ==
PROVIDERS: Emergency Provider Physician Assistant; PCP Family Medicine
DX: K08.89 Other specified disorders of teeth and supporting structures (principal)
CPT/HCPCS: 96372; 99283; A9270; J1885